=== PATIENT | female | born 1975 | race Caucasian/White ===

== ENCOUNTER 2019-07-17 13:23 | Emergency (ER) | payer SELFPAY ==
[~2019-07-17] VITALS: Ht 162.6 cm; Wt 81.6 kg
--- NOTE | 2019-07-17 13:30 | NUR ---
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 PATIENT A/OX4, BREATHING EVEN AND UNLABORED, NO SOB NOTED, ON ROOM AIR WITH SPO2 OF 95%. RASPY VOICE. BUT STATED SHE FEELS BETTER.
[2019-07-17] MEDS ORDERED: FAMOTIDINE/PF INJ 20 MG/2 ML VIAL IV ONE ×2 (13:58→14:00)
[2019-07-17] MEDS ORDERED: methylPREDNISolone SOD SUCC 125 MG/2ML VIAL ONE (13:58)
[2019-07-17] MEDS ORDERED: IV NS 0.9% 1,000 ML BAG IV ONE ×2 (14:00→15:00)
[2019-07-17] MEDS ORDERED: IPRATROPIUM NEB FS 0.5 MG/2.5 ML AMPUL.NEB NEB ONE (14:00)
[2019-07-17] MEDS ORDERED: ALBUTEROL FS 2.5 MG/3 ML VIAL.NEB CONTNEB ONE (14:00)
[2019-07-17] MEDS ORDERED: methylPREDNISolone SOD SUCC 125 MG/2ML VIAL IV ONE (14:00)
[2019-07-17] MEDS ORDERED: IPRATROPIUM NEB FS 0.5 MG/2.5 ML AMPUL.NEB ONE (14:05)
[2019-07-17] MEDS ORDERED: ALBUTEROL FS 2.5 MG/3 ML VIAL.NEB ONE (14:05)
--- NOTE | 2019-07-17 15:00 | NUR ---
PATIENT AWAKE AND ALERT, NO SOB NOTED. NO DISTRESS NOTED.
--- NOTE | 2019-07-17 16:49 | NUR ---
AMBULATORY WITH STEADY GAIT. BREATHING EVEN AND UNLABORED, NO RESPIRATORY DISTRESS NOTED. NEEDS ATTENDED, IV removed. Catheter intact and site benign. Pressure and 4x4 applied to site. No bleeding noted.Patient discharged to home in stable condition. Written and verbal after care instructions given. Patient verbalizes understanding of instruction. FAMILY AT BEDSIDE.
[2019-07-17 16:50] VITALS: BP 127/69
== END 2019-07-17 16:50 | disposition home or self-care (01) ==
LOC: ER 13:30
DX: T78.09XA Anaphylactic reaction due to other food products, initial encounter (principal); F41.9 Anxiety disorder, unspecified; R06.2 Wheezing
CPT/HCPCS: 93005 ×2; 94640 ×2; 96374; 96375; 99284; J2930; J3490; J7030 ×2